=== PATIENT | female | born 1985 | race African-American/Black ===

== ENCOUNTER 2019-12-15 03:51 | Emergency (ER) | payer BC, MEDICAID ==
[~2019-12-15] VITALS: Ht 162.6 cm; Wt 110.0 kg
[2019-12-15 04:52] LABS: BASOPHILS % 0.7 % (0.0-2.0); EOSINOPHILS % 3.2 % (0.0-5.0); HEMATOCRIT. 40.1 % (36.0-48.0); HEMOGLOBIN. 13.5 g/dL (12.0-16.0); LYMPHOCYTES % 31.1 % (20.0-50.0); MEAN CORPUSCULAR HEMOGLOBIN 28.7 pg (28.0-32.0); MEAN CORPUSCULAR VOLUME 85.6 fL (81.0-99.0); MEAN PLATELET VOLUME 7.7 fl (7.4-10.4); MONOCYTES % 6.1 % (2.0-8.0); NEUTROPHILS % 58.9 % (40.0-76.0); PLATELET 236 x1000/uL (130-400); RED BLOOD CELL COUNT 4.69 mill/uL (4.2-5.4); RED CELL DISTRIBUTION WIDTH 14.1 % (11.6-14.6)
[2019-12-15 04:54] LABS: CLARITY URINE CLOUDY (CLEAR); COLOR URINE YELLOW (YELLOW); KETONES URINE NEGATIVE (NEGATIVE); LEUKOCYTE ESTERASE URINE NEGATIVE (NEGATIVE); NITRITE URINE NEGATIVE (NEGATIVE); OCCULT BLOOD URINE NEGATIVE (NEGATIVE); PROTEIN URINE TRACE (NEGATIVE); SPECIFIC GRAVITY URINE 1.019 (1.005-1.030); UROBILINOGEN URINE 0.2 E.U./dL (0.2-1.0)
[2019-12-15 05:00] LABS: CHLORIDE 109 mEq/L (98-107)
[2019-12-15 05:05] LABS: HCG SCREEN NEGATIVE
[2019-12-15 05:08] LABS: CREATINE KINASE 80 IU/L (26-192)
[2019-12-15] MEDS ORDERED: SODIUM CHLORIDE 0.9% 1,000 ML IV ONE (05:55)
[2019-12-15] MEDS ORDERED: MORPHINE SULFATE 4 MG/ML CPJ (NOT FOR IM USE) IV STA (05:55)
[2019-12-15] MEDS ORDERED: ONDANSETRON HCL 4MG/2ML INJ IV STA (05:55)
[2019-12-15 07:14] VITALS: BP 123/75
[2019-12-15] MEDS ORDERED: IOHEXOL-300 100 ML BOTTLE ONE (07:36)
== END 2019-12-15 06:02 | disposition home or self-care (01) ==
LOC: ER 03:51
DX: R10.32 Left lower quadrant pain (principal); I10 Essential (primary) hypertension; Z98.890 Other specified postprocedural states
CPT/HCPCS: 36415; 74177; 80053; 81003; 81025; 82550; 83690; 84703; 85025; 96361; 96374; 96375; 99284; J2270; J2405; J7030; Q9967

== ENCOUNTER 2022-04-25 20:54 | Emergency (ER) | payer BC, MEDICAID ==
[~2022-04-25] VITALS: Ht 162.6 cm; Wt 131.4 kg
[2022-04-26] MEDS ORDERED: DIPHENHYDRAMINE 25MG CAPSULE PO ONE (00:15)
[2022-04-26 00:56] LABS: BASOPHILS % 0.3 % (0.0-2.0); EOSINOPHILS % 2.2 % (0.0-5.0); HEMATOCRIT. 36.8 % (36.0-48.0); LYMPHOCYTES % 17.5 % (20.0-50.0); MEAN CORPUSCULAR HEMOGLOBIN 28.3 pg (28.0-32.0); MEAN CORPUSCULAR VOLUME 86.7 fL (81.0-99.0); MEAN PLATELET VOLUME 7.8 fl (7.4-10.4); MONOCYTES % 6.5 % (2.0-8.0); NEUTROPHILS % 73.5 % (40.0-76.0); PLATELET 288 x1000/uL (130-400); RED BLOOD CELL COUNT 4.24 mill/uL (4.2-5.4); RED CELL DISTRIBUTION WIDTH 15.2 % (11.6-14.6)
[2022-04-26 00:59] LABS: CHLORIDE 107 mEq/L (98-107)
[2022-04-26 01:39] LABS: CLARITY URINE CLOUDY (CLEAR); COLOR URINE DARK YELLOW (YELLOW); KETONES URINE TRACE (NEGATIVE); LEUKOCYTE ESTERASE URINE NEGATIVE (NEGATIVE); NITRITE URINE NEGATIVE (NEGATIVE); OCCULT BLOOD URINE TRACE (NEGATIVE); PH URINE 5.5 (4.5-8.0); PROTEIN URINE TRACE (NEGATIVE)
[2022-04-26] MEDS ORDERED: LABE100T5 MT (01:49)
[2022-04-26] MEDS ORDERED: LABETALOL HCL 100MG TABLET PO ONE (02:00)
[2022-04-26 02:14] VITALS: BP 138/89
== END 2022-04-26 02:20 | disposition home or self-care (01) ==
LOC: ER 20:54
DX: O14.93 Unspecified pre-eclampsia, third trimester (principal); L29.9 Pruritus, unspecified; Z98.890 Other specified postprocedural states; Z3A.30 30 weeks gestation of pregnancy
CPT/HCPCS: 36415; 80053; 81003; 81025; 85025; 86850; 86900; 86901; 99283; Q0163

== ENCOUNTER 2022-05-08 06:07 | Inpatient (IN) | payer MEDICAID ==
[~2022-05-08] VITALS: Ht 162.6 cm; Wt 140.6 kg
[~2022-05-08 06:07] MED LIST: LABE100T5 MT
[2022-05-08] MEDS ORDERED: SODIUM CHLORIDE 0.9% 1,000 ML IV ONE (06:30)
[2022-05-08] MEDS ORDERED: ADENOSINE 3 MG/ML 2ML VIAL IV ONE ×2 (06:30)
[2022-05-08 06:58] LABS: BASOPHILS % 0.3 % (0.0-2.0); EOSINOPHILS % 2.4 % (0.0-5.0); HEMATOCRIT. 38.5 % (36.0-48.0); LYMPHOCYTES % 32.5 % (20.0-50.0); MEAN CORPUSCULAR HEMOGLOBIN 29.4 pg (28.0-32.0); MEAN CORPUSCULAR VOLUME 87.2 fL (81.0-99.0); MEAN PLATELET VOLUME 7.9 fl (7.4-10.4); MONOCYTES % 6.1 % (2.0-8.0); NEUTROPHILS % 58.7 % (40.0-76.0); PLATELET 291 x1000/uL (130-400); RED BLOOD CELL COUNT 4.41 mill/uL (4.2-5.4); RED CELL DISTRIBUTION WIDTH 15.2 % (11.6-14.6)
[2022-05-08 07:07] LABS: CHLORIDE 108 mEq/L (98-107)
[2022-05-08 07:09] LABS: D-DIMER 3.09 mg/L FEU (<0.50); INR 0.9
[2022-05-08 07:23] LABS: ETHANOL BLOOD < 10 mg/dL
[2022-05-08] MEDS ORDERED: IOHEXOL-350 100 ML BOTTLE ONE (09:23)
[2022-05-08] MEDS ORDERED: LABETALOL HCL 100MG TABLET PO ONE (14:00)
[2022-05-08] MEDS ORDERED: DILTIAZEM HCL 30MG TABLET PO SCH (14:15)
[2022-05-08] MEDS: PRENATAL VIT/FE FUMARATE/FA TABLET PO SCH (14:15)
[2022-05-08] MEDS ORDERED: METOPROLOL TARTRATE 25MG TABLET PO NR (15:21)
[2022-05-08 18:28] VITALS: BP 139/68
[2022-05-08 19:57] VITALS: BP 142/72
[2022-05-08 20:00] VITALS: BP 142/72
[2022-05-08] MEDS ORDERED: ACETAMINOPHEN 325MG TABLET PO PRN (20:00)
[2022-05-08] MEDS ORDERED: DOCUSATE SODIUM 100MG CAPSULE PO PRN (20:00)
[2022-05-08] MEDS ORDERED: ONDANSETRON HCL 4MG/2ML INJ IV PRN (20:00)
[2022-05-08] MEDS ORDERED: HYDROCODONE/ACETAMINOPHEN 5/325MG TABLET PO PRN (20:00)
[2022-05-08] MEDS ORDERED: IPRATROPIUM/ALBUTEROL 0.5-3(2.5)MG/3ML NEB NEB PRN (20:00)
[2022-05-08] MEDS ORDERED: CLONIDINE 0.1MG TABLET PO PRN (20:00)
[2022-05-08] MEDS ORDERED: MORPHINE SULFATE 2 MG/ML CPJ (NOT FOR IM USE) IV PRN (20:00)
[2022-05-08] MEDS ORDERED: NALOXONE HCL 0.4MG/ML VIAL IV PRN (20:15)
[2022-05-08] MEDS: METOPROLOL TARTRATE 25MG TABLET PO SCH (20:42)
[2022-05-08] MEDS: ENOXAPARIN 40MG/0.4ML SYR SUBCUT SCH (20:43)
[2022-05-09] VITALS: BP 136/70
[2022-05-09 04:00] VITALS: BP 134/72
[2022-05-09 08:00] VITALS: BP 118/72
[2022-05-09 08:09] LABS: BASOPHILS % 0.2 % (0.0-2.0); EOSINOPHILS % 1.7 % (0.0-5.0); HEMATOCRIT. 34.4 % (36.0-48.0); HEMOGLOBIN. 11.5 g/dL (12.0-16.0); LYMPHOCYTES % 18.2 % (20.0-50.0); MEAN CORPUSCULAR HEMOGLOBIN 28.9 pg (28.0-32.0); MEAN CORPUSCULAR VOLUME 86.2 fL (81.0-99.0); MONOCYTES % 7.5 % (2.0-8.0); NEUTROPHILS % 72.4 % (40.0-76.0); PLATELET 250 x1000/uL (130-400); RED BLOOD CELL COUNT 3.99 mill/uL (4.2-5.4)
[2022-05-09 08:57] LABS: CHLORIDE 109 mEq/L (98-107)
[2022-05-09] MEDS ORDERED: ASPIRIN 81MG EC TABLET PO SCH ×2 (09:00)
[2022-05-09] MEDS ORDERED: FOLIC ACID 1MG TABLET PO SCH (09:00)
[2022-05-09] MEDS: URSODIOL 300MG CAPSULE PO SCH ×2 (09:09→13:08)
[2022-05-09] MEDS: METOPROLOL TARTRATE 25MG TABLET PO SCH (09:10)
[2022-05-09] MEDS: ENOXAPARIN 40MG/0.4ML SYR SUBCUT SCH (09:10)
[2022-05-09 09:21] LABS: PHOSPHORUS 3.7 mg/dL (2.5-4.9)
[2022-05-09] MEDS: PRENATAL VIT/FE FUMARATE/FA TABLET PO SCH (10:43)
[2022-05-09 12:00] VITALS: BP 123/71
[2022-05-09] MEDS ORDERED: ASPI-1406 PO (13:54)
[2022-05-09 15:00] VITALS: BP 140/70
[2022-05-09 16:00] VITALS: BP 140/70
[2022-05-10] MEDS ORDERED: METOPROLOL TARTRATE 25MG TABLET PO SCH (09:00)
== END 2022-05-09 16:18 | disposition home or self-care (01) | DRG 566 ==
LOC: ER 06:07 → ENRESERV 17:30 → 8WST 18:47
PROVIDERS: ADMIT Internal Medicine Nephrology; ATTEND Internal Medicine Nephrology
DX: O99.413 Diseases of the circulatory system complicating pregnancy, third trimester (principal); K83.1 Obstruction of bile duct; I47.1 Supraventricular tachycardia; O26.613 Liver and biliary tract disorders in pregnancy, third trimester; O10.913 Unspecified pre-existing hypertension complicating pregnancy, third trimester; O34.211 Maternal care for low transverse scar from previous cesarean delivery; O99.213 Obesity complicating pregnancy, third trimester; Z3A.31 31 weeks gestation of pregnancy
CPT/HCPCS: 36415; 71045; 71275; 76805; 76818; 80048; 80053; 80320; 83735; 83880; 84100; 84443; 84484; 85025; 85379; 93005; 93306; 93970; 99291; J1650; J7030; Q9967; G0480

== ENCOUNTER 2022-05-22 16:39 | Observation (INO) | payer MEDICAID ==
[~2022-05-22] VITALS: Ht 162.6 cm; Wt 133.4 kg
[~2022-05-22 16:39] MED LIST changes: +ASPI-1406 PO; -LABE100T5 MT
[2022-05-22 19:02] LABS: CLARITY URINE CLEAR (CLEAR); COLOR URINE YELLOW (YELLOW); KETONES URINE 4+ (NEGATIVE); LEUKOCYTE ESTERASE URINE NEGATIVE (NEGATIVE); NITRITE URINE NEGATIVE (NEGATIVE); OCCULT BLOOD URINE NEGATIVE (NEGATIVE); PROTEIN URINE TRACE (NEGATIVE); UROBILINOGEN URINE 0.2 E.U./dL (0.2-1.0)
[2022-05-22 19:03] LABS: BASOPHILS % 0.3 % (0.0-2.0); EOSINOPHILS % 1.8 % (0.0-5.0); HEMOGLOBIN. 11.8 g/dL (12.0-16.0); LYMPHOCYTES % 17.3 % (20.0-50.0); MEAN PLATELET VOLUME 7.7 fl (7.4-10.4); MONOCYTES % 5.3 % (2.0-8.0); NEUTROPHILS % 75.3 % (40.0-76.0); PLATELET 273 x1000/uL (130-400); RED BLOOD CELL COUNT 4.07 mill/uL (4.2-5.4); RED CELL DISTRIBUTION WIDTH 15.1 % (11.6-14.6)
[2022-05-22 19:09] LABS: CHLORIDE 107 mEq/L (98-107)
[2022-05-22 19:16] LABS: D-DIMER 2.69 mg/L FEU (<0.50); PROTHROMBIN TIME 10.4 sec (9.6-11.0)
== END 2022-05-22 20:35 | disposition home or self-care (01) ==
LOC: 8 EST LDRP 16:39
PROVIDERS: ADMIT Obstetrics & Gynecology; ATTEND Obstetrics & Gynecology
DX: O13.3 Gestational [pregnancy-induced] hypertension without significant proteinuria, third trimester (principal); Z3A.33 33 weeks gestation of pregnancy
CPT/HCPCS: 36415; 59025; 80053; 81003; 84550; 85025; 85379; 85384; 85610; 85730; G0378; 99281